=== PATIENT | male | born 1995 | race Caucasian/White ===

== ENCOUNTER 2017-04-24 10:38 | Emergency (ER) | payer BC, OTHER ==
--- NOTE | 2017-04-24 12:22 | EDPHY ---
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 Denies fever, chills, neck stiffness, headache, vomiting, diarrhea, abdominal pain. Reports that he just does not have any energy. Eating and drinking normally. Modifying Factors: Comment: ROS: see HPI Constitutional: No fever, no chills, no weight loss Eyes: No blurred vision Respiratory: No shortness of breath, no cough Cardiovascular: No chest pain Gastrointestinal: No nausea, no vomiting, no diarrhea Genitourinary: No dysuria Extremities: No myalgias Neurologic: No weakness, no numbness Skin: No rashes Hematologic: No bruising, no bleeding MEDICAL/SURGICAL/SOCIAL HISTORY: Medical history: Generally healthy. Does not take any regular medications. Surgical history: Denies Social history: Local college student at [employer] CONSTITUTIONAL: Well-developed well-nourished nontoxic young adult, awake and alert, no obvious distress HEENT: Atraumatic and normocephalic, PERRL, EOMI. Tympanic membranes clear. Oropharynx clear, no exudate and moist pink mucosa. Airway patent. No lymphadenopathy. No meningismus. Cardiovascular: Normal S1/S2, regular rate, regular rhythm, without murmur rub or gallop. PULMONARY/CHEST: Symmetrical and nontender. Clear to auscultation bilaterally. Good air movement. No accessory muscle usage. ABDOMEN: Soft, nondistended, nontender, no rebound, no guarding, no peritoneal signs, no masses or organomegaly. No CVAT. EXTREMITIES: 2/2 pulses, strength 5/5, no deformities, no clubbing, no cyanosis or edema. NEUROLOGICAL: no focal neuro deficits. GCS 15. SKIN: Warm and dry, no erythema. no rash. Good capillary refill. Source: Patient Exam Limitations: No limitations - Medical/Surgical History Hx Asthma: No Hx Chronic Respiratory Disease: No Hx Diabetes: No Hx Cardiac Disease: No Hx Renal Disease: No Hx Cirrhosis: No Hx Alcoholism: No Hx HIV/AIDS: No Hx Splenectomy or Spleen Trauma: No Other PMH: none - Social History Smoking Status: Never smoked Constitutional: Initial Vital Signs Temperature (C) 37.3 C 04/24/17 12:24 Heart Rate 92 04/24/17 12:24 Respiratory Rate 18 04/24/17 12:24 Blood Pressure 125/60 H 04/24/17 12:24 O2 Sat (%) 97 04/24/17 12:24 O2 Delivery Mode Room Air Allergies/Adverse Reactions: No Known Allergies Allergy (Verified 04/24/17 12:26) Home Medications: Medication Instructions Recorded NK [No Known Home Meds] 04/24/17 Medical Decision Making ED Course/Re-evaluation: Labs, IV fluids IV medications, strep influenza ordered Given IV fluids 1 L normal saline, IV Toradol Patient is afebrile without systemic signs No signs of sepsis/tonsillar abscess/hypoxia/airway compromise/splenomegaly/ acute kidney injury/electrolyte imbalance/lymphadenitis/strep Advised supportive care and avoid contact sports This patient was seen under the supervision of my secondary supervising physician. I evaluated care for this patient independently. Patient's presentation, labs/imaging, treatment and plan of care were discussed with secondary supervising physician. Differential Diagnosis: Differential diagnosis includes but is not limited to influenza, histoplasmosis , cat scratch fever, upper respiratory infection, mononucleosis. - Data Points Laboratory Results: Laboratory Results 04/24/17 12:55 04/24/17 12:55 04/24/17 04/24/17 04/24/17 Unknown 12:55 12:55 WBC RBC Hgb Hct MCV MCH MCHC RDW Plt Count MPV Neut % (Auto) Lymph % (Auto) [place] % (Auto) Eos % (Auto) Baso % (Auto) Nucleat RBC Rel Count Absolute Neuts (auto) Absolute Lymphs (auto) Absolute Monos (auto) Absolute Eos (auto) Absolute Basos (auto) Absolute Nucleated RBC Immature Gran % Seg Neutrophils % Band Neutrophils % Lymphocytes % Monocytes % Eosinophils % Immature Gran # Absolute Seg Neuts Absolute Band Neuts Absolute Lymphocytes Absolute Monocytes Absolute Eosinophils Atypical Lymphocytes Platelet Estimate Smear Review By [facility] Lactic Acid Sodium Potassium Chloride Carbon Dioxide Anion Gap BUN Creatinine Estimated GFR Glucose Calcium Nasal Influenza A PCR Pending Nasal Influenza B PCR Pending Monoscreen POSITIVE H (NEGATIVE) Group A Strep Screen NEGATIVE (NEGATIVE) Group A Strep DNA Pending 04/24/17 04/24/17 04/24/17 12:55 12:55 12:55 WBC 7.60 10^3/uL 10^3/uL (3.80-9.50) RBC 5.21 10^6/uL 10^6/uL (4.40-6.38) Hgb 14.8 g/dL g/dL (13.7-17.5) Hct 43.7 % % (40.0-51.0) MCV 83.9 fL fL (81.5-99.8) MCH 28.4 pg pg (27.9-34.1) MCHC 33.9 g/dL g/dL (32.4-36.7) RDW 13.2 % % (11.5-15.2) Plt Count 112 10^3/uL L 10^3/uL (150-400) MPV 10.4 fL fL (8.7-11.7) Neut % (Auto) 37.3 % L % (39.3-74.2) Lymph % (Auto) 49.1 % H % (15.0-45.0) [place] % (Auto) 11.2 % % (4.5-13.0) Eos % (Auto) 0.3 % L % (0.6-7.6) Baso % (Auto) 1.3 % % (0.3-1.7) Nucleat RBC Rel Count 0.0 % % (0.0-0.2) Absolute Neuts (auto) 2.84 10^3/uL 10^3/uL (1.70-6.50) Absolute Lymphs (auto) 3.73 10^3/uL H 10^3/uL (1.00-3.00) Absolute Monos (auto) 0.85 10^3/uL H 10^3/uL (0.30-0.80) Absolute Eos (auto) 0.02 10^3/uL L 10^3/uL (0.03-0.40) Absolute Basos (auto) 0.10 10^3/uL 10^3/uL (0.02-0.10) Absolute Nucleated RBC 0.00 10^3/uL 10^3/uL (0-0.01) Immature Gran % 0.8 % % (0.0-1.1) Seg Neutrophils % 21 % % Band Neutrophils % 17 % % Lymphocytes % 57 % % Monocytes % 4 % % Eosinophils % 1 % % Immature Gran # 0.06 10^3/uL 10^3/uL (0.00-0.10) Absolute Seg Neuts 1.60 10^/uL L 10^/uL (1.70-6.50) Absolute Band Neuts 1.29 10^3/uL H 10^3/uL (0.00-0.70) Absolute Lymphocytes 4.33 10^3/uL H 10^3/uL (1.00-3.00) Absolute Monocytes 0.30 10^3/uL 10^3/uL (0.30-0.80) Absolute Eosinophils 0.08 10^3/uL 10^3/uL (0.03-0.40) Atypical Lymphocytes 3+ H Platelet Estimate Pending Smear Review By Pending VBG Lactic Acid 1.2 mmol/L mmol/L (0.7-2.1) Sodium 137 mEq/L mEq/L (134-144) Potassium 4.5 mEq/L mEq/L (3.5-5.2) Chloride 98 mEq/L mEq/L (97-110) Carbon Dioxide 23 mEq/l mEq/l (22-31) Anion Gap 16 mEq/L mEq/L (8-16) BUN 16 mg/dL mg/dL (7-23) Creatinine 1.2 mg/dL mg/dL (0.7-1.3) Estimated GFR > 60 Glucose 83 mg/dL mg/dL (70-100) Calcium 9.1 mg/dL mg/dL (8.5-10.4) Nasal Influenza A PCR Nasal Influenza B PCR Monoscreen Group A Strep Screen Group A Strep DNA Medications Given: Discontinued Medications Sodium Chloride (Ns) 1,000 mls @ 0 mls/hr IV EDNOW ONE; Wide Open PRN Reason: Protocol Stop: 04/24/17 12:44 Last Admin: 04/24/17 12:55 Dose: 1,000 mls Ketorolac Tromethamine (Toradol) 30 mg IVP EDNOW ONE Stop: 04/24/17 12:44 Last Admin: 04/24/17 12:55 Dose: 30 mg Departure - Departure Disposition: Home, Routine, Self-Care Clinical Impression: Mononucleosis Condition: Good Instructions: Mononucleosis (ED) Additional Instructions: Please rest as much as possible and drink plenty of fluids to prevent dehydration. Take Tylenol and/or ibuprofen as needed for pain, headache, fever. Please avoid contact sports for the next 3-4 weeks. [facility]. Referrals: [facility] [Clinic] - As per Instructions Stand Alone Forms: School Excuse
[2017-04-24 12:25] VITALS: TEMP 99.1
[2017-04-24] MEDS ORDERED: NS 1,000 ML IV ONE (12:43)
[2017-04-24] MEDS ORDERED: KETOROLAC 30 MG/1 ML SDV IVP ONE (12:43)
[2017-04-24 13:08] VITALS: RESP 16
[2017-04-24 13:15] LABS: STREP SCREEN RAPID NEGATIVE (NEGATIVE)
[2017-04-24 13:34] LABS: ANION GAP 16 mEq/L (8-16); CALCIUM 9.1 mg/dL (8.5-10.4); CARBON DIOXIDE 23 mEq/l (22-31); CHLORIDE 98 mEq/L (97-110); CREATININE 1.2 mg/dL (0.7-1.3); GLOMERULAR FILTRATION RATE > 60; GLUCOSE 83 mg/dL (70-100); POTASSIUM 4.5 mEq/L (3.5-5.2); SODIUM 137 mEq/L (134-144)
[2017-04-24 13:47] LABS: % IMMATURE GRANULYOCYTES 0.8 % (0.0-1.1); ABSOLUTE IMMATURE GRANULOCYTES 0.06 10^3/uL (0.00-0.10); ADD DIFF? NO; ADD MORPH? NO; ADD SCAN? YES; FRAGMENT RBC FLAG 0 (0-99); HEMATOCRIT 43.7 % (40.0-51.0); HEMOGLOBIN 14.8 g/dL (13.7-17.5); LEFT SHIFT FLG 0 (0-99); LIPEMIA HEMOLYSIS FLAG 90 (0-99); MEAN CELL HEMOGLOBIN 28.4 pg (27.9-34.1); MEAN CELL HEMOGLOBIN CONCENTR. 33.9 g/dL (32.4-36.7); MEAN CELL VOLUME 83.9 fL (81.5-99.8); MEAN PLATELET VOLUME 10.4 fL (8.7-11.7); PLATELET CLUMPS FLAG 20 (0-99); PLATELET COUNT 112 10^3/uL (150-400); RED BLOOD CELL COUNT 5.21 10^6/uL (4.40-6.38); RED CELL DISTRIBUTION WIDTH 13.2 % (11.5-15.2)
[2017-04-24 13:49] LABS: ATYPICAL LYMPHOCYTE FLAG 300 (0-99)
[2017-04-24 14:32] LABS: SCAN POSITIVE
[2017-04-24 14:41] LABS: PLATELET ESTIMATE ADEQUATE (ADEQ)
[2017-04-24 14:50] VITALS: BP 111/66; PULSE 88; O2SAT 95
== END 2017-04-24 14:51 | disposition home or self-care (01) ==
DX: B27.90 Infectious mononucleosis, unspecified without complication (principal); E86.9 Volume depletion, unspecified
CPT/HCPCS: 96374; J1885